=== PATIENT | male | born 1995 | race Two or more races ===

== ENCOUNTER 2023-06-15 08:09 | Emergency (ER) | payer MEDICAID, OTHER ==
[~2023-06-15] VITALS: Ht 172.7 cm; Wt 72.7 kg
[2023-06-15 08:16] VITALS: BP 130/76; TEMP 97.6
[2023-06-15 08:33] VITALS: PULSE 86; RESP 16; O2SAT 99
[2023-06-15] MEDS: TETANUS-DIPTH-ACEL PERTUSSIS 0.5ML SYR Tdap IM ONE (09:03)
[2023-06-15] MEDS: DexAMETHasone SOD PHOS 10MG/1ML VIAL INJ IM ONE (09:03)
[2023-06-15] MEDS: KETOROLAC TROMETH 60MG/2ML VIAL IM ONE (09:04)
[2023-06-15] MEDS ORDERED: CIPR-173 PO (09:17)
[2023-06-15] MEDS ORDERED: IBUP-1456 PO (09:17)
== END 2023-06-15 09:22 | disposition home or self-care (01) ==
LOC: ER 08:09
DX: S61.231A Puncture wound without foreign body of left index finger without damage to nail, initial encounter (principal); S09.90XA Unspecified injury of head, initial encounter; Z79.1 Long term (current) use of non-steroidal anti-inflammatories (NSAID); Z79.2 Long term (current) use of antibiotics; W26.8XXA Contact with other sharp object(s), not elsewhere classified, initial encounter; Y93.89 Activity, other specified; Y92.89 Other specified places as the place of occurrence of the external cause; Y99.8 Other external cause status
CPT/HCPCS: 73130; 90471; 90715; 96372; 99284; J1100; J1885